=== PATIENT | male | born 1950 | race Caucasian/White ===

== ENCOUNTER → 2016-11-28 | Outpatient (CLI) | payer MEDICARE, BC ==
--- NOTE | 2016-11-29 11:18 | REP ---
MRI RIGHT SHOULDER WITHOUT CONTRAST: HISTORY: Pain in the right shoulder exacerbated by a fall 3 weeks prior. Decreased range of motion. No comparison radiographs. MRI right shoulder study is reviewed from March 31, 2002. TECHNIQUE: Axial, oblique coronal, and oblique sagittal imaging planes are utilized. T1- and T2-weighted scans are obtained in the usual fashion with and without fat saturation. MRI FINDINGS: The patient had difficulty with pain in the scanner. Motion artifact is present on the T2-weighted oblique coronal study, and the patient was unable to tolerate repeat imaging. There is a large subacromial subdeltoid bursal effusion. A moderate glenohumeral joint effusion is present as well. There is mild osteoarthritic hypertrophy at the AC joint, and some moderate inferolateral acromion process spurring is noted. There is diffuse tendonitis tendinosis in the supraspinatus tendon manifest by increased signal intensity and thickening. T2-weighted scans demonstrate a focal T2 hyperintensity on the axial images suggesting a focal distal supraspinatus insertion site tear. There is diffuse thickening and increased signal intensity in the subscapularis tendon as well. The biceps tendon is subluxed medially but appears otherwise intact. It does display increased signal intensity near its genu consistent with tendinosis. No anterior or posterior labral disruption is appreciated. The superior labrum is less well seen but appears intact. No loose body is appreciated. IMPRESSION: Joint effusion and subacromial subdeltoid bursal effusion. AC joint osteoarthritis. Acromion process spurring. Medial subluxation of the biceps tendon. Advanced tendinosis in the subscapularis and supraspinatus tendons. Focal tear at the distal insertion anteriorly of the supraspinatus tendon. No retraction. Signed by Ervin Avila MD 11/29/2016 04:43 P
== END ==
LOC: M RAD 16:15
PROVIDERS: ATTEND Emergency Medicine
DX: M25.511 Pain in right shoulder (principal)

== ENCOUNTER → 2023-01-02 | Outpatient (CLI) | payer MEDICARE, BC | LOC: M RAD 09:12 | PROVIDERS: ATTEND Internal Medicine Gastroenterology | DX: N28.1 Cyst of kidney, acquired (principal); K58.9 Irritable bowel syndrome, unspecified; R10.9 Unspecified abdominal pain; R14.0 Abdominal distension (gaseous) ==

== ENCOUNTER 2023-04-09 07:24 | Day surgery (SDC) | payer MEDICARE, BC ==
[~2023-04-09] VITALS: Ht 175.3 cm; Wt 98.4 kg
[~2023-04-09 07:24] MED LIST: BSS IRRIG/VANCO(10MG)/TOBRA(5MG)/EPINEPH(1:1000-0.5CC)500ML BAG-ORONLY IR ONE; CEFUROXIME 1MG/0.1ML INTRACAMERAL INJ As Ordered ONE; ECOT81TA5 PO; LIDOCAINE 1% SDV 5ML VIAL As Ordered ONE; LIDOCAINE 3.5 % 1ML OPHTH TOPICAL GEL OU ONE; METO1TAB87 PO; MIDAZOLAM INJ 2MG/2ML VIAL As Ordered ONE; OFLOXACIN 0.3 % (OCUFLOX) OPTH SOL 5ML OD ONE; PHENYLEPHRINE 10% OPHTH SOL 5ML OD PRN; PROBCAP14 PO; VITMTA PO; fentaNYL 100 MCG/2 ML INJECTION As Ordered ONE
[2023-04-09] MEDS: PHENYLEPHRINE 2.5% OPHTH SOL 2ML OD SCH ×3 (07:51→08:07)
[2023-04-09] MEDS: TROPICAMIDE 1% OPHTH SOLN 15ML OD SCH ×3 (07:51→08:07)
[2023-04-09] MEDS: CYCLOPENTOLATE 1% OPHTH SOLN 2ML BTL OD SCH ×3 (07:52→08:07)
[2023-04-09 09:04] VITALS: BP 121/88; TEMP 97.1; O2SAT 97
== END 2023-04-09 09:21 | disposition home or self-care (01) ==
LOC: M SDC 07:24
PROVIDERS: ATTEND Ophthalmology
DX: H25.11 Age-related nuclear cataract, right eye (principal); I48.91 Unspecified atrial fibrillation; I10 Essential (primary) hypertension; E78.00 Pure hypercholesterolemia, unspecified; K58.9 Irritable bowel syndrome, unspecified; M19.90 Unspecified osteoarthritis, unspecified site; Z79.899 Other long term (current) drug therapy; Z79.82 Long term (current) use of aspirin
CPT/HCPCS: 66984; 92015; J0697; J2250; J3010; V2632

== ENCOUNTER 2023-04-16 08:47 | Day surgery (SDC) | payer MEDICARE, BC ==
[~2023-04-16] VITALS: Ht 176.5 cm; Wt 96.2 kg
[~2023-04-16 08:47] MED LIST changes: +CYCLOPENTOLATE 1% OPHTH SOLN 2ML BTL OS SCH; -MIDAZOLAM INJ 2MG/2ML VIAL As Ordered ONE; -OFLOXACIN 0.3 % (OCUFLOX) OPTH SOL 5ML OD ONE; +OFLOXACIN 0.3 % (OCUFLOX) OPTH SOL 5ML OS ONE; -PHENYLEPHRINE 10% OPHTH SOL 5ML OD PRN; +PHENYLEPHRINE 10% OPHTH SOL 5ML OS PRN; +PHENYLEPHRINE 2.5% OPHTH SOL 2ML OS SCH; +TROPICAMIDE 1% OPHTH SOLN 15ML OS SCH; -fentaNYL 100 MCG/2 ML INJECTION As Ordered ONE
[2023-04-16] MEDS ORDERED: MIDAZOLAM INJ 2MG/2ML VIAL As Ordered ONE (11:39)
[2023-04-16 12:22] VITALS: BP 136/88; TEMP 97.2; O2SAT 97
== END 2023-04-16 12:26 | disposition home or self-care (01) ==
LOC: M SDC 08:47
PROVIDERS: ATTEND Ophthalmology
DX: H25.12 Age-related nuclear cataract, left eye (principal); I48.91 Unspecified atrial fibrillation; I10 Essential (primary) hypertension; E78.00 Pure hypercholesterolemia, unspecified; K58.9 Irritable bowel syndrome, unspecified; Z87.442 Personal history of urinary calculi; Z79.82 Long term (current) use of aspirin; Z79.899 Other long term (current) drug therapy; F12.10 Cannabis abuse, uncomplicated; M19.90 Unspecified osteoarthritis, unspecified site
CPT/HCPCS: 66988; 92015; J0697; J2250; V2788